=== PATIENT | female | born 1950 | race African-American/Black ===

== ENCOUNTER 2018-09-01 18:04 | Emergency (ER) | payer OTHER ==
[2018-09-01 18:22] VITALS: BMI 19.2
--- NOTE | 2018-09-01 18:22 | PDOC ---
Rapid Medical Evaluation Time Seen by Provider: 09/01/18 18:17 Medical Evaluation: Allergies Allergy/AdvReac Type Severity Reaction Status Date / Time No Known Allergies Allergy Verified 09/01/18 18:16 09/01/18 18:19 The patient presents for L sided hip pain. Hx of arthritis. Pt states she fell one week ago and landed on the L side Exam: ambulatory, normal gait, no gross neuro deficits Orders: pelvis x-ray Pt to proceed to the ER for further evaluation Discharge Disposition - Diagnosis Hip pain Qualifiers: Laterality: left Qualified Code(s): M25.552 - Pain in left hip - Referrals - Patient Instructions - Post Discharge Activity
[2018-09-01] MEDS ORDERED: NAPROXEN 500 MG TABLET (FP) PO ONE (19:49)
--- NOTE | 2018-09-01 19:53 | PDOC ---
History of Present Illness - General Chief Complaint: Pain Stated Complaint: PAIN IN LEFT HIP Time Seen by Provider: 09/01/18 18:17 History Source: Patient Exam Limitations: No Limitations - History of Present Illness Initial Comments: 09/01/18 19:53 HISTORY OF PRESENT ILLNESS: This a 68-year-old woman past medical history of glaucoma, hyperthyroidism, hypertension, [id number] diabetes, arthritis presents emergency department for evaluation of left hip pain for the past 2 months. Patient reports that time the change of seasons she began to experience pain in her hip which was worsening during cold wet weather improved on warm [place] days. She reports the pain was worse early in the morning but improved throughout the day with movement. She describes the pain as a burning sensation rated 7/10. Approximately 8 days ago patient was at a doctor's office when she twisted on her left knee causing her to lose her balance and landed on her left knee. She denies any pain in her left knee but has had consistent pain in the hip since that time. No recent travel or sick contacts. PAST MEDICAL HISTORY: see HPI SURGICAL HISTORY: Right knee arthroscopy 20+ years ago. ALLERGIES: No known drug allergies REVIEW OF SYSTEMS General/Constitutional: Denies fever or chills. Denies weakness, weight change. HEENT: Denies change in vision. Denies ear pain or discharge. Denies sore throat. Cardiovascular: Denies chest pain or shortness of breath. Respiratory: Denies cough, wheezing, or hemoptysis. Gastrointestinal: Denies nausea, vomiting, diarrhea or constipation. Denies rectal bleeding. Genitourinary: Denies dysuria, frequency, or change in urination. Musculoskeletal: see HPI Skin and breasts: Denies rash or easy bruising. Neurologic: Denies headache, vertigo, loss of consciousness, or loss of sensation. Psychiatric: Denies depression or anxiety. Endocrine: Denies increased thirst. Denies abnormal weight change. Hematologic/Lymphatic: Denies anemia, easy bleeding, or history of blood clots. Allergic/Immunologic: Denies hives or skin allergy. Denies latex allergy. PHYSICAL EXAM General Appearance: Well-appearing, appropriately dressed. No apparent distress , no intoxication. Respiratory/Chest: Lungs CTAB. No shortness of breath, chest tenderness, respiratory distress, accessory muscle use. No crackles, rales, rhonchi, stridor , wheezing, dullness Cardiovascular: RRR. S1, S2. No JVD, murmur, bradycardia, tachycardia. Vascular Pulses: Dorsalis-Pedis (R): 2+, Dorsalis-Pedis (L): 2+ Musculoskeletal/Extremities: Normal inspection. FROM of all extremities, normal capillary refill. Pelvis Stable. No CVA tenderness. No tenderness to extremities, pedal edema, swelling, erythema or deformity. Integumentary: Appropriate color, dry, warm. 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 Fully oriented, alert. Appropriate mood/affect. Motor strength 5/5. No appreciable EOM palsy, facial droop or sensory deficit. Past History - Past Medical History Allergies/Adverse Reactions: Allergies Allergy/AdvReac Type Severity Reaction Status Date / Time No Known Allergies Allergy Verified 09/01/18 18:16 COPD: No Diabetes: Yes HTN: Yes Other medical history: arthritis - Immunization History Immunization Up to Date: No - Suicide/Smoking/Psychosocial Hx Smoking History: Never smoked Hx Alcohol Use: No Drug/Substance Use Hx: No *Physical Exam - Vital Signs Last Vital Signs Temp Pulse Resp BP Pulse Ox 98.4 F 102 H 18 139/95 100 09/01/18 18:16 09/01/18 18:16 09/01/18 18:16 09/01/18 18:16 09/01/18 18:16 Medical Decision Making - Medical Decision Making 09/01/18 19:56 A/P: 68-year-old woman with atraumatic left hip pain for 2 months X-ray of the pelvis as read by me: No acute fractures or dislocations present.? Lesion present on the front lateral view and not visualized on other views. Pain is most likely from arthritis. Naprosyn 500 mg orally now Discharge home with orthopedic follow-up I discussed the physical exam findings, ancillary test results and final diagnoses with the patient. I answered all of the patient's questions. The patient was satisfied with the care received and felt comfortable with the discharge plan and treatment plan. The patient will call their primary care physician within 24 hours to arrange follow-up and will return to the Emergency Department with any new, persistent or worsening symptoms. *DC/Admit/Observation/Transfer Diagnosis at time of Disposition: Hip pain Qualifiers: Laterality: left Qualified Code(s): M25.552 - Pain in left hip - Discharge Dispostion Disposition: HOME Condition at time of disposition: Fair Decision to Admit order: No - Referrals Referrals: Roro Larios MD [Primary Care Provider] - Cecil Barrett DO [Staff Physician] - - Patient Instructions Additional Instructions: Take naproxen as needed for pain. Follow manufacturers instructions for appropriate dosage. You may also take Tylenol as directed by manufacturers instructions for pain. Try not to walk or bear weight as much as possible for the next 3 days. Warm moist heat applied to your leg may help alleviate pain. You have been given a referral for orthopedist. If symptoms do not resolve call to make an appointment. Return to emergency department for discoloration of the foot, numbness or tingling to the foot, worsening pain, or any other concerns. Thank you very much for choosing us to provide your emergent healthcare needs. - Post Discharge Activity Forms/Work/School Notes: Back to Work
[2018-09-01] MEDS ORDERED: NAPROXEN 500 MG TABLET (FP) ONE (19:56)
--- NOTE | 2018-09-01 20:01 | PDOC ---
*Physical Exam - Vital Signs Last Vital Signs Temp Pulse Resp BP Pulse Ox 98.4 F 102 H 18 139/95 100 09/01/18 18:16 09/01/18 18:16 09/01/18 18:16 09/01/18 18:16 09/01/18 18:16 Medical Decision Making - Medical Decision Making 09/01/18 20:01 Case reviewed, agree with assessment and plan *DC/Admit/Observation/Transfer Diagnosis at time of Disposition: Hip pain Qualifiers: Laterality: left Qualified Code(s): M25.552 - Pain in left hip - Discharge Dispostion Disposition: HOME Condition at time of disposition: Fair - Referrals Referrals: Roro Larios MD [Primary Care Provider] - Cecil Barrett DO [Staff Physician] - - Patient Instructions Additional Instructions: Take naproxen as needed for pain. Follow manufacturers instructions for appropriate dosage. You may also take Tylenol as directed by manufacturers instructions for pain. Try not to walk or bear weight as much as possible for the next 3 days. Warm moist heat applied to your leg may help alleviate pain. You have been given a referral for orthopedist. If symptoms do not resolve call to make an appointment. Return to emergency department for discoloration of the foot, numbness or tingling to the foot, worsening pain, or any other concerns. Thank you very much for choosing us to provide your emergent healthcare needs. - Post Discharge Activity Forms/Work/School Notes: Back to Work
[2018-09-02 05:29] VITALS: BP 156/93; PULSE 92; TEMP 97.9
== END 2018-09-01 21:30 | disposition home or self-care (01) ==
LOC: JER 18:04
DX: M25.552 Pain in left hip (principal); E03.9 Hypothyroidism, unspecified; I10 Essential (primary) hypertension; E11.9 Type 2 diabetes mellitus without complications
CPT/HCPCS: 73523-TC-FY; 99282-25

== ENCOUNTER 2019-02-14 23:07 | Emergency (ER) | payer OTHER ==
[2019-02-14 23:16] VITALS: BMI 20.1
--- NOTE | 2019-02-14 23:50 | PDOC ---
History of Present Illness - General Chief Complaint: Revisit, Lab Variance Stated Complaint: L/HIP PAIN History Source: Patient - History of Present Illness Initial Comments: 02/15/19 01:00 68 year old female with left hip pain seen by rtho today. patient reports that she had lab work done today with pcp who called her back for sugar > 500mg. patient reports that she is in her usual state of health currently being worked iup for progressively worsening left hip pain patient denies NVD, abdominal painm chest pain Past History - Past Medical History Allergies/Adverse Reactions: Allergies Allergy/AdvReac Type Severity Reaction Status Date / Time No Known Allergies Allergy Verified 09/01/18 18:16 Home Medications: Ambulatory Orders Dorzolamide HCl/Pf [Dorzolamide 2% Eye Drop] 1 drop BID 09/01/18 metFORMIN HCL [Metformin HCl] 850 mg PO BID 09/01/18 Losartan Potassium 100 mg PO DAILY 02/15/19 RX: Dorzolamide HCl/Timolol Maleat [Dorzolamide-Timolol Eye Drops] 1 drop OU BID 02/15/19 COPD: No Diabetes: Yes HTN: Yes - Immunization History Immunization Up to Date: No - Psycho Social/Smoking Cessation Hx Smoking History: Never smoked Hx Alcohol Use: No Drug/Substance Use Hx: No *Physical Exam - Vital Signs Last Vital Signs Temp Pulse Resp BP Pulse Ox 98.1 F 109 H 20 151/94 100 02/14/19 23:11 02/14/19 23:11 02/14/19 23:11 02/14/19 23:11 02/14/19 23:11 - Physical Exam General Appearance: Yes: Appropriately Dressed, Cachetic HEENT: positive: Normal ENT Inspection Respiratory/Chest: positive: Lungs Clear, Normal Breath Sounds Gastrointestinal/Abdominal: positive: Normal Bowel Sounds, Soft Extremity: positive: Normal Capillary Refill, Normal Inspection, Normal Range of Motion Integumentary: positive: Dry (dry skin) Neurologic: positive: Fully Oriented, Alert ED Treatment Course - LABORATORY CBC & Chemistry Diagram: 02/15/19 00:28 02/15/19 00:28 Medical Decision Making - Medical Decision Making 02/15/19 02:42 A Hyperglycemia P: labs VBG betahydroxy: 2.0 02/15/19 04:03 blood sugar 316. patient is asymptomatic. will d/c home to have close follow up with PCP for medication management and monitoring of blood sugar Discharge - Discharge Information Problems reviewed: Yes Clinical Impression/Diagnosis: Chronic left hip pain Hyperglycemia due to type 2 diabetes mellitus Qualifiers: Diabetes mellitus fpc insulin use: with fpc use Qualified Code(s): E11.65 - Type 2 diabetes mellitus with hyperglycemia - Follow up/Referral Referrals: Roro Larios MD [Primary Care Provider] - Call tomorrow - Patient Discharge Instructions Patient Printed Discharge Instructions: DI for Hyperglycemia -- Adult Additional Instructions: Additional Instructions: * Please call your personal physician to report your Emergency Department visit and to report your progress, if any. * If there is no improvement in symptoms in 2 days call your physician. * Return to the Emergency Department for any worsening symptoms. - Post Discharge Activity
[2019-02-15] MEDS ORDERED: SODIUM CHLORIDE 1,000 ML IV STA ×2 (00:24→02:03)
[2019-02-15 00:37] LABS: BASO % 0.7 % (0-2.0); EOS % 0.3 % (0-4.5); HEMATOCRIT 45.7 % (32.4-45.2); HEMOGLOBIN 15.3 GM/dL (10.7-15.3); MCH 32.6 pg (25.7-33.7); MCHC 33.4 g/dl (32.0-36.0); MEAN CELL VOLUME 97.5 fl (80-96); MEAN PLT VOLUME 7.8 fl (7.5-11.1); MONO % 8.1 % (3.8-10.2); NEUT % 68.9 % (42.8-82.8); PLATELET COUNT 391 K/MM3 (134-434); RBC 4.69 M/mm3 (3.60-5.2); RDW 13.3 % (11.6-15.6); WHITE BLOOD COUNT 7.5 K/mm3 (4.0-10.0)
[2019-02-15 00:40] LABS: VENOUS PC02 42.3 mmHg (38-52); VENOUS PH 7.38 (7.31-7.41)
[2019-02-15 00:43] LABS: VENOUS PO2 < 49 mmHg (28-48)
[2019-02-15 01:02] LABS: ALBUMIN 3.3 g/dl (3.4-5.0); BILIRUBIN,TOTAL 0.4 mg/dL (0.2-1); BLOOD UREA NITROGEN 16.7 mg/dL (7-18); CALCIUM 10.2 mg/dL (8.5-10.1); CREATININE 0.9 mg/dL (0.55-1.3); POTASSIUM 5.2 mmol/L (3.5-5.1); TOT PROT 6.8 g/dl (6.4-8.2)
[2019-02-15 01:03] LABS: INR 0.92 (0.83-1.09); PROTHROMBIN TIME (PATIENT) 10.8 SEC (9.7-13.0)
[2019-02-15 01:06] LABS: ACTIVATED PTT 33.6 SECONDS (25.2-36.5)
[2019-02-15 03:02] LABS: URINE APPEARANCE CLEAR; URINE BILIRUBIN NEGATIVE (NEGATIVE); URINE COLOR YELLOW; URINE GLUCOSE (UA) 3+ (NEGATIVE); URINE KETONE NEGATIVE (NEGATIVE); URINE LEUK ESTERASE NEGATIVE (NEGATIVE); URINE NITRITE NEGATIVE (NEGATIVE); URINE PROTEIN NEGATIVE (NEGATIVE); URINE UROBILINOGEN 0.2 mg/dL (0.2-1.0)
[2019-02-15 03:23] VITALS: BP 169/86; PULSE 87; TEMP 98.2
== END 2019-02-15 04:37 | disposition home or self-care (01) ==
LOC: JER 23:07
PROC: 3E0337Z Introduction of Electrolytic and Water Balance Substance into Peripheral Vein, Percutaneous Approach (ICD-10-PCS; principal; 2019-02-14)
DX: M25.552 Pain in left hip (principal); G89.29 Other chronic pain; E11.65 Type 2 diabetes mellitus with hyperglycemia; Z79.84 Long term (current) use of oral hypoglycemic drugs; I10 Essential (primary) hypertension
CPT/HCPCS: 36415; 80053; 81003; 82010; 82803; 82962; 85025; 85610; 85730; 99283-25; J7030

== ENCOUNTER 2020-12-10 07:50 | Inpatient (IN) | payer OTHER ==
[2020-12-10] MEDS ORDERED: LACTATED RINGERS SOLUTION 1000 ML INFUS.BAG IV ONE (10:02)
[2020-12-10 11:27] LABS: HEMATOCRIT 25.9 % (32.4-45.2); HEMOGLOBIN 8.7 GM/dL (10.7-15.3); MCH 32.8 pg (25.7-33.7); MCHC 33.7 g/dl (32.0-36.0); MEAN CELL VOLUME 97.5 fl (80-96); MEAN PLT VOLUME 8.3 fl (7.5-11.1); PLATELET COUNT 177 10^3/uL (134-434); RBC 2.66 M/mm3 (3.60-5.2); RDW 19.1 % (11.6-15.6); WHITE BLOOD COUNT 18.2 K/mm3 (4.0-10.0)
[2020-12-10 11:36] LABS: INR 0.98 (0.83-1.09)
[2020-12-10 11:39] LABS: ACTIVATED PTT 28.3 SECONDS (25.2-36.5)
[2020-12-10 11:43] LABS: CHLORIDE 111 mmol/L (98-107); SODIUM 140 mmol/L (136-145)
[2020-12-10 11:46] LABS: ALBUMIN 2.9 g/dl (3.4-5.0); ANION GAP 10 MMOL/L (8-16); BLOOD UREA NITROGEN 25.5 mg/dL (7-18); CO2 19 mmol/L (21-32); MAGNESIUM 1.4 mg/dL (1.8-2.4)
[2020-12-10 11:48] LABS: ADD RBC MORPHOLOGY YES; GLUCOSE,RANDOM 60 mg/dL (74-106)
[2020-12-10 11:49] LABS: CREATININE 0.9 mg/dL (0.55-1.3); SGOT/AST 37 U/L (15-37); SGPT/ALT 30 U/L (13-61); TRIGLYCERIDES 181 mg/dL (0-150)
[2020-12-10 11:50] LABS: BILIRUBIN,TOTAL 0.3 mg/dL (0.2-1); CHOLESTEROL 132 mg/dL (50-200); LDL CHOLESTEROL (ONLY SJRH) 60 mg/dL (5-100)
[2020-12-10 11:51] LABS: TOT PROT 6.3 g/dl (6.4-8.2)
[2020-12-10 11:52] LABS: ALK PHOS 156 U/L (45-117); HDL CHOLESTEROL 27 mg/dL (40-60)
[2020-12-10] MEDS ORDERED: MAGNESIUM SULF 50% (8.12 MEQ/2 ML-1 GM VIAL) IVPB ONE ×2 (12:01→15:36)
[2020-12-10] MEDS ORDERED: MAGNESIUM SULF 50% (8.12 MEQ/2 ML-1 GM VIAL) ONE ×2 (13:14→15:47)
[2020-12-10 14:27] LABS: ANISOCYTOSIS 1+; MACROCYTOSIS 1+; OVALOCYTE 1+; PLATELET ESTIMATE NORMAL; ROULEAU 1+
[2020-12-10] MEDS ORDERED: LACTATED RINGERS SOLUTION 1,000 ML/1,000 ML INFUS.BAG IV SCH (15:45)
[2020-12-10 20:00] LABS: EPI CELLS 12 /uL (0-25.1); HYALINE CASTS 1 /uL (0-3.1); URINE APPEARANCE CLEAR; URINE BACTERIA 107 /uL (0-1359); URINE BILIRUBIN NEGATIVE (NEGATIVE); URINE COLOR YELLOW; URINE GLUCOSE (UA) NEGATIVE (NEGATIVE); URINE KETONE NEGATIVE (NEGATIVE); URINE LEUK ESTERASE 1+ (NEGATIVE); URINE NITRITE NEGATIVE (NEGATIVE); URINE PROTEIN TRACE (NEGATIVE); URINE RBC 30 /uL (0-23.9); URINE UROBILINOGEN 0.2 mg/dL (0.2-1.0); URINE WBC 51 /uL (0-25.8)
[2020-12-10] MEDS: ATORVASTATIN CA 40 MG TABLET (FP) PO SCH (21:02)
[2020-12-10 21:53] VITALS: BMI 23.9
[2020-12-11 07:34] LABS: HEMATOCRIT 21.7 % (32.4-45.2); HEMOGLOBIN 7.4 GM/dL (10.7-15.3); MCH 32.9 pg (25.7-33.7); MEAN CELL VOLUME 96.9 fl (80-96); MEAN PLT VOLUME 8.2 fl (7.5-11.1); PLATELET COUNT 167 10^3/uL (134-434); RBC 2.24 M/mm3 (3.60-5.2); RDW 17.9 % (11.6-15.6); WHITE BLOOD COUNT 7.1 K/mm3 (4.0-10.0)
[2020-12-11 07:48] LABS: ALBUMIN 2.5 g/dl (3.4-5.0); BLOOD UREA NITROGEN 20.6 mg/dL (7-18); MAGNESIUM 1.6 mg/dL (1.8-2.4)
[2020-12-11 07:49] LABS: CALCIUM 7.5 mg/dL (8.5-10.1)
[2020-12-11 07:51] LABS: CREATININE 0.9 mg/dL (0.55-1.3); PHOSPHOROUS 2.7 mg/dL (2.5-4.9)
[2020-12-11 07:52] LABS: BILIRUBIN,TOTAL 0.5 mg/dL (0.2-1); TOT PROT 5.4 g/dl (6.4-8.2)
[2020-12-11] MEDS: ASPIRIN 81 MG CHEWABLE TABLETS PO SCH (09:22)
[2020-12-11] MEDS: ENOXAPARIN NA (PORCINE) 40 MG/0.4 ML DISP.SYRIN SQ SCH (09:22)
[2020-12-11] MEDS ORDERED: MAGNESIUM OXIDE 400 MG TABLET (FP) PO ONE (18:50)
[2020-12-11] MEDS ORDERED: LOPERAMIDE HCL 2 MG CAPSULE PO PRN (19:00)
[2020-12-11] MEDS: ATORVASTATIN CA 40 MG TABLET (FP) PO SCH (21:27)
[2020-12-12] MEDS: ASPIRIN 81 MG CHEWABLE TABLETS PO SCH (09:20)
[2020-12-12] MEDS: ENOXAPARIN NA (PORCINE) 40 MG/0.4 ML DISP.SYRIN SQ SCH (09:32)
[2020-12-12 15:47] LABS: BASO % 0.3 % (0-2.0); EOS % 0.5 % (0-4.5); HEMATOCRIT 20.3 % (32.4-45.2); LYMPH % 24.7 % (8-40); MCH 33.2 pg (25.7-33.7); MEAN CELL VOLUME 97.7 fl (80-96); MEAN PLT VOLUME 8.8 fl (7.5-11.1); MONO % 13.7 % (3.8-10.2); NEUT % 60.8 % (42.8-82.8); PLATELET COUNT 150 10^3/uL (134-434); RBC 2.08 M/mm3 (3.60-5.2); RDW 19.3 % (11.6-15.6); WHITE BLOOD COUNT 4.2 K/mm3 (4.0-10.0)
[2020-12-12 15:54] LABS: HEMOGLOBIN 6.9 GM/dL (10.7-15.3)
[2020-12-12 16:06] LABS: ALBUMIN 2.5 g/dl (3.4-5.0); BLOOD UREA NITROGEN 20.3 mg/dL (7-18)
[2020-12-12 16:11] LABS: BILIRUBIN,TOTAL 0.2 mg/dL (0.2-1); TOT PROT 5.5 g/dl (6.4-8.2)
[2020-12-12 18:28] LABS: ANISOCYTOSIS 2+; MACROCYTOSIS 1+; PLATELET ESTIMATE NORMAL
[2020-12-12 20:39] LABS: MAGNESIUM 1.6 mg/dL (1.8-2.4)
[2020-12-12] MEDS: ATORVASTATIN CA 40 MG TABLET (FP) PO SCH (21:40)
[2020-12-13 08:14] LABS: CALCIUM 8.3 mg/dL (8.5-10.1); HEMATOCRIT 24.9 % (32.4-45.2); HEMOGLOBIN 8.6 GM/dL (10.7-15.3); MCH 32.7 pg (25.7-33.7); MCHC 34.4 g/dl (32.0-36.0); MEAN CELL VOLUME 94.9 fl (80-96); MEAN PLT VOLUME 8.8 fl (7.5-11.1); PLATELET COUNT 136 10^3/uL (134-434); RBC 2.63 M/mm3 (3.60-5.2); RDW 18.8 % (11.6-15.6)
[2020-12-13 08:15] LABS: ALBUMIN 2.7 g/dl (3.4-5.0); BLOOD UREA NITROGEN 21.9 mg/dL (7-18); MAGNESIUM 1.7 mg/dL (1.8-2.4)
[2020-12-13 08:18] LABS: CREATININE 0.9 mg/dL (0.55-1.3)
[2020-12-13 08:19] LABS: BILIRUBIN,TOTAL 0.4 mg/dL (0.2-1); TOT PROT 5.5 g/dl (6.4-8.2)
[2020-12-13] MEDS: ASPIRIN 81 MG CHEWABLE TABLETS PO SCH (09:30)
[2020-12-13] MEDS: ENOXAPARIN NA (PORCINE) 40 MG/0.4 ML DISP.SYRIN SQ SCH (09:30)
[2020-12-13 10:22] LABS: ANISOCYTOSIS 1+; MACROCYTOSIS 0; OVALOCYTE 1+; PLATELET ESTIMATE DECREASED
[2020-12-13 14:25] VITALS: BP 144/78; PULSE 86; TEMP 98.3
== END 2020-12-13 18:25 | disposition home or self-care (01) | DRG 65 ==
LOC: JER 07:50 → JERBED 12:24 → J4W 19:24
PROVIDERS: ADMIT Internal Medicine; ATTEND Nurse Practitioner Family
DX: I63.9 Cerebral infarction, unspecified (principal); G81.94 Hemiplegia, unspecified affecting left nondominant side; C50.911 Malignant neoplasm of unspecified site of right female breast; E11.65 Type 2 diabetes mellitus with hyperglycemia; I10 Essential (primary) hypertension; D64.9 Anemia, unspecified; R19.7 Diarrhea, unspecified; D72.829 Elevated white blood cell count, unspecified
CPT/HCPCS: 36415; 36430; 36511; 70450-TC; 70544-TC; 70547-TC; 70551-TC; 71045-TC-FY; 80053; 80061; 81003; 82550; 82553; 82728; 82962; 83036; 83540; 83550; 83735; 84100; 84443; 84484; 85025; 85027; 85610; 85730; 86850; 86900; 86901; 86922; 93005; 93010; 93306-TC; 93880-TC; 97116-GP; 97162-GP; 99285-25; C9803; P9038; P9058; U0003; U0005